=== PATIENT | male | born 1990 | race Caucasian/White ===

== ENCOUNTER 2021-09-06 21:22 | Emergency (ER) | payer BC ==
[2021-09-06] MEDS ORDERED: Lidocaine 1% w/Epinephrine 1:100K 20 ML VIAL ONE (23:57)
== END 2021-09-07 01:29 | disposition home or self-care (01) ==
LOC: CSHERS 21:22
DX: L02.415 Cutaneous abscess of right lower limb (principal)
CPT/HCPCS: 99282